=== PATIENT | male | born 1945 | race Caucasian/White ===

== ENCOUNTER 2022-10-18 10:18 | Outpatient (CLI) | payer MEDICARE, BC, SELFPAY ==
[2022-10-18 11:03] LABS: Alanine Aminotransferase* 36 U/L (4-50); Aspartate Amino Transferase* 45 U/L (12-35); Cholesterol* 131 mg/dL (90-199); Creatine Kinase* 285 U/L (54-186); HDL Cholesterol* 48 mg/dL (>=40); LDL Cholesterol Calculated 67 mg/dL (<100); Triglycerides* 79 mg/dL (40-149)
== END 2022-10-18 10:19 | disposition home or self-care (01) ==
DX: I10 Essential (primary) hypertension (principal); I48.20 Chronic atrial fibrillation, unspecified; E78.5 Hyperlipidemia, unspecified
CPT/HCPCS: 36415; 80061; 82550; 84450; 84460

== ENCOUNTER 2024-03-13 15:17 | Emergency (ER) | payer MEDICARE, BC, SELFPAY ==
[2024-03-13 15:26] VITALS: BP 148/85; PULSE 86; RESP 18; TEMP 37.2; O2SAT 93; BMI 24.4
--- NOTE | 2024-03-13 15:35 | ED.UPPEXIN ---
HPI - Extremity Injury (Upper) General Chief Complaint: Extremity Pain/Injury, Upper Stated Complaint: right hand injury Time Seen by Provider: 03/13/24 15:25 History of Present Illness HPI narrative: This 78-year-old male comes in with a laceration to his right hand that occurred about 30 minutes prior to arrival. He was using a knife and accidentally cut the aspect of his right hand just proximal to the MP joint of the index finger. He is on Eliquis. He does not report any other injury. His tetanus status is up-to-date. Related Data Home Medications ?Medication ?Instructions ?Recorded ?Confirmed ammonium lactate 12 % lotion topical BID 02/12/24 02/12/24 apixaban 5 mg tablet (Eliquis) 5 mg PO BID 02/12/24 02/12/24 chlorthalidone 25 mg tablet 25 mg PO DAILY 02/12/24 02/12/24 lisinopril 10 mg tablet 10 mg PO DAILY 02/12/24 02/12/24 metoprolol succinate 100 mg 100 mg PO BID 02/12/24 02/12/24 tablet,extended release 24 hr metoprolol succinate 50 mg 50 mg PO BID 02/12/24 02/12/24 tablet,extended release 24 hr rosuvastatin 40 mg tablet 40 mg PO DAILY 02/12/24 02/12/24 triamcinolone acetonide 0.1 % 1 applic topical BID-TID 02/12/24 02/12/24 topical cream Allergies Allergy/AdvReac Type Severity Reaction Status Date / Time No Known Drug Allergies Allergy Verified 02/12/24 12:35 Review of Systems Status of ROS: Reports: 10 or more systems reviewed and unremarkable except as noted in History and below Narrative: Constitutional: No fevers, no weight gain or loss. Eyes: No discharge. No vision changes. HENT: No congestion, no sore throat, no ear pain. Cardiovascular: No chest pain, no palpitations. Respiratory: No shortness of breath, no wheezes, no cough. Gastrointestinal: No abdominal pain, no vomiting, no diarrhea. Genitourinary: No dysuria, no hematuria. Musculoskeletal: Normal range of motion. Skin: No rashes, no pruritis. Neurological: No dizziness, weakness, sensory change, speech change. Endo/Heme/Allergies: No bruising or bleeding. No polydipsia. Pysch: no suicidality, no anxiety, no insomnia. All other systems reviewed and are negative. Exam Narrative: Exam Narrative: Constitutional: Well-developed, well-nourished, no acute distress. HEENT: Normocephalic, atraumatic. Neck: Normal range of motion. Nontender. Supple. Heart: Regular. No murmurs. Normal rate. Intact distal pulses. Lungs: Clear to auscultation. No chest discomfort. No wheezes, rhonchi, or rales. Abdomen: Normal bowel sounds. Nontender. No rebound tenderness. Genitalia: Deferred. Back: No midline tenderness. Normal range of motion. Extremities: Normal range of motion. 2 cm linear laceration on the right hand just proximal to the MP joint of the index finger. Skin: Intact. No rash. Warm. No erythema or pallor. Neurologic: No altered sensation. No weakness. Alert and oriented. Psychiatric: No suicidality. No anxiety or depression. No insomnia. Nursing notes and vitals signs are reviewed. Const: Vital Signs, click to edit/add: Vital Signs - 24 hr 03/13/24 15:26 Temperature 98.9 F Pulse Rate [Right Pulse Oximeter] 86 Respiratory Rate 18 Blood Pressure [Ri ght Upper Arm] 148/85 H Pulse Oximetry 93 Oxygen Delivery Me thod Room Air Course Vital Signs Vital signs: Initial Vital Signs Temperature 98.9 F 03/13/24 15:26 Temperature Source Temporal Artery Scan 03/13/24 15:26 Pulse Rate 86 03/13/24 15:26 Respiratory Rate 18 03/13/24 15:26 Blood Pressure 148/85 H 03/13/24 15:26 Blood Pressure Mean 106 H 03/13/24 15:26 Blood Pressure Position Sitting 03/13/24 15:26 Pulse Oximetry 93 03/13/24 15:26 Oxygen Delivery Method Room Air 03/13/24 15:26 Vital Signs Temperature 98.9 F 03/13/24 15:26 Pulse Rate 86 03/13/24 15:26 Respiratory Rate 18 03/13/24 15:26 Blood Pressure 148/85 H 03/13/24 15:26 Pulse Oximetry 93 03/13/24 15:26 Oxygen Delivery Method Room Air 03/13/24 15:26 Temperature 98.9 F 03/13/24 15:26 Pulse Rate 86 03/13/24 15:26 Respiratory Rate 18 03/13/24 15:26 Blood Pressure 148/85 H 03/13/24 15:26 Pulse Oximetry 93 03/13/24 15:26 Oxygen Delivery Method Room Air 03/13/24 15:26 MDM - Extremity Injury (Upper) MDM Narrative Medical decision making narrative: This 78-year-old male comes in with a laceration to his right hand as described above. Wound was cleansed with Hibiclens. He is on Eliquis and there is a small amount of ongoing bleeding. I injected lidocaine 1% into the wound for anesthesia. Three sutures were placed in interrupted fashion to close the wound. There was no ongoing bleeding. The wound was bandaged instructions regarding wound care were given. Discharge Plan Discharge Clinical Impression: Laceration Additional Instructions: Keep wound clean and dry. Follow-up with clinic or urgent care in 7-10 days for suture removal. Prescriptions: No Action rosuvastatin 40 mg tablet 40 mg PO DAILY lisinopril 10 mg tablet 10 mg PO DAILY chlorthalidone 25 mg tablet 25 mg PO DAILY ammonium lactate 12 % lotion topical BID Eliquis 5 mg tablet 5 mg PO BID metoprolol succinate 50 mg tablet extended release 24 hr 50 mg PO BID triamcinolone acetonide 0.1 % cream 1 applic topical BID-TID metoprolol succinate 100 mg tablet extended release 24 hr 100 mg PO BID Follow Up/Referrals: Provider,Not a Local [Primary Care Provider] - Stand Alone Forms: MyHealth Info Instructions
== END 2024-03-13 16:18 | disposition home or self-care (01) ==
PROVIDERS: Emergency Provider Emergency Medicine Emergency Medical Services
DX: S61.411A Laceration without foreign body of right hand, initial encounter (principal); W26.0XXA Contact with knife, initial encounter
CPT/HCPCS: 12001; 99283; 99284